=== PATIENT | male | born 1960 ===

== ENCOUNTER 2016-12-01 11:06 | Outpatient (CLI) | payer OTHER ==
--- NOTE | 2016-12-01 12:14 | DIAGNOSTIC IMAGING REPORT ---
PROCEDURE: XR FINGER - RIGHT INDICATION: FINGER PAIN TECHNIQUE: Four views. COMPARISON: None. FINDINGS: Osseous structures and joint spaces are normal. IMPRESSION: 1. Normal third digit right hand.
== END 2016-12-01 23:00 ==
LOC: XR SRH 11:06
DX: M79.644 Pain in right finger(s) (principal)